=== PATIENT | female | born 1960 | race Caucasian/White ===

== ENCOUNTER 2016-12-20 06:24 | Observation (INO) | payer BC ==
--- NOTE | 2016-12-20 06:33 | ED ---
General Adult HPI - General Stated complaint: chest pains Time Seen by Provider: 12/20/16 06:29 Source: RN notes reviewed, old records reviewed - History of Present Illness Initial comments: This is a 56-year-old female the ER for evaluation chest pain. Patient states she has anterior chest pain radiating up to her throat. Patient has no history of high blood pressure positive history of high cholesterol no diabetes nonsmoker patient's dad did have a heart attack at a young age, patient states she had cardiac testing about 5 years ago which was normal at the time. She states she woke for this pain awoke her this morning she felt like she was bloated like she had to burp and the symptoms were under her chest which they still are now. No shortness of breath. No cough congestion fevers or chills history as of recent. Patient states she did try to walk walk around and get rid of the symptoms but she was unable to. Patient still feeling same pain at this time no episodes of diaphoresis and currently no shortness of breath - Related Data Home Medications Medication Instructions Recorded Confirmed Aspirin 81 mg PO HS 03/27/15 12/20/16 Atorvastatin Calcium [Lipitor] 10 mg PO HS 03/27/15 12/20/16 Multivitamin/Iron/Folic Acid 1 tab PO DAILY 03/27/15 12/20/16 [Centrum Complete Multivit Tab] Aspirin 325 mg PO ONCE 12/20/16 12/20/16 Cetirizine HCl [Zyrtec] 10 mg PO HS 12/20/16 12/20/16 L.acidoph,Paracasei, B.lactis 1 cap PO DAILY 12/20/16 12/20/16 [Probiotic] Magnesium Oxide [Mag-Ox] 400 mg PO DAILY 12/20/16 12/20/16 Ubidecarenone [Co Q-10] 200 mg PO DAILY 12/20/16 12/20/16 Allergies Allergy/AdvReac Type Severity Reaction Status Date / Time levofloxacin [From Levaquin] Allergy Swelling Verified 12/20/16 08:06 Sulfa (Sulfonamide Allergy Rash/Hives Verified 12/20/16 08:06 Antibiotics) Review of Systems ROS Statement: Those systems with pertinent positive or pertinent negative responses have been documented in the HPI. ROS Other: All systems not noted in ROS Statement are negative. Past Medical History Past Medical History: Hyperlipidemia Additional Past Medical History / Comment(s): sinus problems,. C-diff x2 with hospitalization due to antibiotics History of Any Multi-Drug Resistant Organisms: C-DIFF Date of last positivie culture/infection: 2007 MDRO Source:: stool Past Surgical History: Adenoidectomy, Bladder Surgery, Hysterectomy, Tonsillectomy Additional Past Surgical History / Comment(s): cyst removed behind lt ear, 2 breast biopsy rt- benign. colonoscopy Past Anesthesia/Blood Transfusion Reactions: Postoperative Nausea & Vomiting ( PONV) Past Psychological History: No Psychological Hx Reported Smoking Status: Never smoker Past Alcohol Use History: Rare Past Drug Use History: None Reported - Past Family History Mother Family Medical History: No Reported History Father Family Medical History: Myocardial Infarction ([place]), Osteoarthritis (OA) Additional Family Medical History / Comment(s): AT 63 Sister(s) Family Medical History: Asthma, Diabetes Mellitus, Hyperlipidemia, Hypertension , Osteoarthritis (OA), Rheumatoid Arthritis (RA) General Exam General appearance: alert, in no apparent distress Head exam: Present: atraumatic, normocephalic, normal inspection Eye exam: Present: normal appearance, PERRL, EOMI. Absent: scleral icterus, conjunctival injection, periorbital swelling ENT exam: Present: normal exam, mucous membranes moist Neck exam: Present: normal inspection. Absent: tenderness, meningismus, lymphadenopathy Respiratory exam: Present: normal lung sounds bilaterally. Absent: respiratory distress, wheezes, rales, rhonchi, stridor Cardiovascular Exam: Present: regular rate, normal rhythm, normal heart sounds. Absent: systolic murmur, diastolic murmur, rubs, gallop, clicks GI/Abdominal exam: Present: soft, normal bowel sounds. Absent: distended, tenderness, guarding, rebound, rigid Extremities exam: Present: normal inspection, full ROM, normal capillary refill. Absent: tenderness, pedal edema, joint swelling, calf tenderness Back exam: Present: normal inspection Neurological exam: Present: alert, oriented X3, CN II-XII intact Psychiatric exam: Present: normal affect, normal mood Skin exam: Present: warm, dry, intact, normal color. Absent: rash Course Vital Signs 12/20/16 12/20/16 12/20/16 06:28 07:00 08:12 Temperature 97.0 F L 98.4 F Pulse Rate 70 65 69 Respiratory 16 18 18 Rate Blood Pressure 148/88 134/79 122/71 O2 Sat by Pulse 99 98 99 Oximetry EKG Findings - EKG Comments: EKG Findings:: EKG shows normal sinus rhythm rate of 60, AL 152, QRS 86, QTC 431 Medical Decision Making - Medical Decision Making 56-year-old year fevers or chest pain. Patient will be admitted for chest pain observation, cardiac evaluation, serial troponins and car and telemetry. - Lab Data Result diagrams: 12/20/16 06:33 12/20/16 06:33 Lab Results 12/20/16 12/20/16 12/20/16 Range/Units 06:33 06:33 06:33 WBC 7.7 (3.8-10.6) k/uL RBC 4.61 (3.80-5.40) m/uL Hgb 14.2 (11.4-16.0) gm/dL Hct 43.8 (34.0-46.0) % MCV 94.9 (80.0-100.0) fL MCH 30.8 (25.0-35.0) pg MCHC 32.5 (31.0-37.0) g/dL RDW 13.6 (11.5-15.5) % Plt Count 261 (150-450) k/uL Neutrophils % 62 % Lymphocytes % 29 % Monocytes % 5 % Eosinophils % 2 % Basophils % 1 % Neutrophils # 4.7 (1.3-7.7) k/uL Lymphocytes # 2.2 (1.0-4.8) k/uL Monocytes # 0.4 (0-1.0) k/uL Eosinophils # 0.1 (0-0.7) k/uL Basophils # 0.1 (0-0.2) k/uL PT (9.0-12.0) sec INR (<1.2) APTT (22.0-30.0) sec D-Dimer (<0.60) mg/L FEU Sodium 138 (137-145) mmol/L Potassium 4.6 (3.5-5.1) mmol/L Chloride 102 (98-107) mmol/L Carbon Dioxide 26 (22-30) mmol/L Anion Gap 10 mmol/L BUN 10 (7-17) mg/dL Creatinine 0.80 (0.52-1.04) mg/dL Est GFR (MDRD) Af Amer >60 (>60 ml/min/1.73 sqM) Est GFR (MDRD) Non-Af >60 (>60 ml/min/1.73 sqM) Glucose 97 (74-99) mg/dL Calcium 10.2 (8.4-10.2) mg/dL Magnesium 1.9 (1.6-2.3) mg/dL Total Bilirubin 0.7 (0.2-1.3) mg/dL AST 82 H (14-36) U/L ALT 69 H (9-52) U/L Alkaline Phosphatase 83 (38-126) U/L Total Creatine Kinase 216 H (30-135) U/L CK-MB (CK-2) 3.4 H* (0.0-2.4) ng/mL CK-MB (CK-2) Rel Index 1.6 Troponin I <0.012 (0.000-0.034) ng/mL Total Protein 7.7 (6.3-8.2) g/dL Albumin 4.7 (3.5-5.0) g/dL Lipase 136 (23-300) U/L 12/20/16 Range/Units 06:33 WBC (3.8-10.6) k/uL RBC (3.80-5.40) m/uL Hgb (11.4-16.0) gm/dL Hct (34.0-46.0) % MCV (80.0-100.0) fL MCH (25.0-35.0) pg MCHC (31.0-37.0) g/dL RDW (11.5-15.5) % Plt Count (150-450) k/uL Neutrophils % % Lymphocytes % % Monocytes % % Eosinophils % % Basophils % % Neutrophils # (1.3-7.7) k/uL Lymphocytes # (1.0-4.8) k/uL Monocytes # (0-1.0) k/uL Eosinophils # (0-0.7) k/uL Basophils # (0-0.2) k/uL PT 10.7 (9.0-12.0) sec INR 1.1 (<1.2) APTT 26.0 (22.0-30.0) sec D-Dimer 0.31 (<0.60) mg/L FEU Sodium (137-145) mmol/L Potassium (3.5-5.1) mmol/L Chloride (98-107) mmol/L Carbon Dioxide (22-30) mmol/L Anion Gap mmol/L BUN (7-17) mg/dL Creatinine (0.52-1.04) mg/dL Est GFR (MDRD) Af Amer (>60 ml/min/1.73 sqM) Est GFR (MDRD) Non-Af (>60 ml/min/1.73 sqM) Glucose (74-99) mg/dL Calcium (8.4-10.2) mg/dL Magnesium (1.6-2.3) mg/dL Total Bilirubin (0.2-1.3) mg/dL AST (14-36) U/L ALT (9-52) U/L Alkaline Phosphatase (38-126) U/L Total Creatine Kinase (30-135) U/L CK-MB (CK-2) (0.0-2.4) ng/mL CK-MB (CK-2) Rel Index Troponin I (0.000-0.034) ng/mL Total Protein (6.3-8.2) g/dL Albumin (3.5-5.0) g/dL Lipase (23-300) U/L - Radiology Data Radiology results: report reviewed (Chest x-ray is negative for acute disease), image reviewed Critical Care Time Critical Care Time: Yes Critical Care Time: 31 Disposition Clinical Impression: Chest pain Disposition: ADMITTED IP TO THIS [facility] Condition: Undetermined
[2016-12-20 06:51] LABS: Basophils # (A) 0.1 k/uL (0-0.2); Basophils % (A) 1 %; CH 32.1; Eosinophils # (A) 0.1 k/uL (0-0.7); Eosinophils % (A) 2 %; HCT 43.8 % (34.0-46.0); HGB 14.2 gm/dL (11.4-16.0); Luc # (Auto) 0.09; Luc % (Auto) 1; Lymphocytes # (A) 2.2 k/uL (1.0-4.8); Lymphocytes % (A) 29 %; MCH 30.8 pg (25.0-35.0); MCHC 32.5 g/dL (31.0-37.0); MCV 94.9 fL (80.0-100.0); Mean Platelet Volume 8.1; Monocytes # (A) 0.4 k/uL (0-1.0); Monocytes % (A) 5 %; Neutrophils # (A) 4.7 k/uL (1.3-7.7); Neutrophils % (A) 62 %; RBC 4.61 m/uL (3.80-5.40); RDW 13.6 % (11.5-15.5); WBC 7.7 k/uL (3.8-10.6); WBC (Perox) 7.62
[2016-12-20 07:02] VITALS: RESP 18
[2016-12-20 07:03] LABS: ALT 69 U/L (9-52); AST 82 U/L (14-36); Alkaline Phosphatase 83 U/L (38-126); Anion Gap 10 mmol/L; Blood Urea Nitrogen 10 mg/dL (7-17); Calcium 10.2 mg/dL (8.4-10.2); Carbon Dioxide 26 mmol/L (22-30); Chloride 102 mmol/L (98-107); Glucose 97 mg/dL (74-99); Magnesium 1.9 mg/dL (1.6-2.3); Non-African American GFR(MDRD) >60 (>60 ml/min/1.73 sqM); Potassium 4.6 mmol/L (3.5-5.1); Sodium 138 mmol/L (137-145); Total Bilirubin 0.7 mg/dL (0.2-1.3); Total Protein 7.7 g/dL (6.3-8.2)
[2016-12-20 07:11] LABS: Creatine Kinase 216 U/L (30-135)
[2016-12-20 07:15] LABS: INR 1.1 (<1.2); Prothrombin Time 10.7 sec (9.0-12.0)
--- NOTE | 2016-12-20 07:23 | XR ---
EXAM: XR Chest, 2 Views. CLINICAL HISTORY: Reason: Chest Pain TECHNIQUE: Frontal and lateral views of the chest. COMPARISON: No relevant prior studies available. FINDINGS: Lungs: Unremarkable. No consolidation. Pleural spaces: Unremarkable. No pneumothorax. Heart: Unremarkable. No cardiomegaly. Mediastinum: Unremarkable. Bones: Unremarkable. No acute fracture. IMPRESSION: Normal chest.
[2016-12-20 07:24] LABS: Troponin I <0.012 ng/mL (0.000-0.034)
[2016-12-20 07:34] LABS: Creatine Kinase MB 3.4 ng/mL (0.0-2.4)
[2016-12-20] MEDS ORDERED: HEPARIN SODIUM,PORCINE 5,000 UNIT/ML 1 ML VIAL IV ONE (07:42)
[2016-12-20] MEDS ORDERED: ASPIRIN 81 MG PO STA (07:42)
[2016-12-20] MEDS ORDERED: MORPHINE SULFATE 2 MG/ML SYRINGE IV PRN (07:42)
[2016-12-20] MEDS ORDERED: NITROGLYCERIN SL TABS 0.4 MG TAB SUBLINGUAL PRN (07:42)
[2016-12-20] MEDS ORDERED: HEPARIN SODIUM,PORCINE 5,000 UNIT/ML 1 ML VIAL IV PRN (07:42)
[2016-12-20] MEDS ORDERED: HEPARIN SODIUM,PORCINE/D5W PMX 25,000 UNIT in DEXTROSE/WATER 1 500ML.BAG IV SCH (07:45)
[2016-12-20 08:38] VITALS: BP 117/66; PULSE 61; TEMP 97.8
[2016-12-20 08:46] VITALS: BMI 22.6
[2016-12-20] MEDS ORDERED: ATORVASTATIN 80 MG TAB PO SCH (09:00)
--- NOTE | 2016-12-20 13:07 | P.CRDCN ---
History of Present Illness Consult date: 12/20/16 History of present illness: This is a 56-year-old female with past medical history significant for hyperlipidemia. She presents to the hospital with complaints of midsternal chest pressure that she describes as a feeling of a bubble that she needs to belch. But she is unable to make the bubble go away. She feels this pressure in her throat as well. She denies shortness of breath, dizziness, palpitations or nausea associated with this pain. She also denies orthopnea or PND. She had a stress test done approximately 5 years ago which she states was normal. She denies any history of prior NE or CAD. She is a nonsmoker and has a family history. EKG reveals sinus mechanism with no acute ST or T-wave abnormalities. Cardiac enzymes are negative x1. D-dimer negative. Potassium 4.6, magnesium 1.9 , BUN 10, Cr 0.8. Blood pressure 117/66 with heart rate of 61. Review of Systems CONSTITUTIONAL: Denies fever. Denies chills. EYES: Denies blurred vision. Denies vision changes. Denies eye pain. EARS, NOSE, MOUTH & THROAT: Denies headache. Denies sore throat. Denies ear pain. CARDIOVASCULAR: Complains of chest pain. Denies shortness of breath. Denies orthopnea. Denies PND. Denies palpitations. RESPIRATORY: Denies cough. GASTROINTESTINAL: Denies abdominal pain. Denies diarrhea. Denies constipation. Denies nausea. Denies vomitng. MUSCULOSKELETAL: Denies myalgias. INTEGUMENTARY: Denies pruitis. Denies rash. NEUROLOGIC: Denies numbness. Denies tingling. Denies weakness. PSYCHIATRIC: Denies anxiety. Denies depression. ENDOCRINE: Denies fatigue. Denies weight change. Denies polydipsia. Denies polyurina. GENITOURINARY: Denies burning, hematuria or urgency with micturation. HEMATOLOGIC: Denies history of anemia. Denies bleeding. Past Medical History Past Medical History: Hyperlipidemia Additional Past Medical History / Comment(s): sinus problems,. C-diff x2 with hospitalization due to antibiotics 2007 History of Any Multi-Drug Resistant Organisms: C-DIFF Date of last positivie culture/infection: 2007 MDRO Source:: stool Past Surgical History: Adenoidectomy, Bladder Surgery, Hernia Repair, Hysterectomy, Tonsillectomy Additional Past Surgical History / Comment(s): cyst removed behind lt ear, 2 breast biopsy rt- benign. colonoscopy Past Anesthesia/Blood Transfusion Reactions: Postoperative Nausea & Vomiting ( PONV) Past Psychological History: No Psychological Hx Reported Smoking Status: Never smoker Past Alcohol Use History: Rare Past Drug Use History: None Reported - Past Family History Mother Family Medical History: Hyperlipidemia, Hypertension Additional Family Medical History / Comment(s): SMOKER Father Family Medical History: Myocardial Infarction ([place]), Osteoarthritis (OA) Additional Family Medical History / Comment(s): AT 63 Sister(s) Family Medical History: Asthma, Diabetes Mellitus, Hyperlipidemia, Hypertension , Osteoarthritis (OA), Rheumatoid Arthritis (RA) Medications and Allergies Home Medications Medication Instructions Recorded Confirmed Type Aspirin 81 mg PO HS 03/27/15 12/20/16 History Atorvastatin Calcium [Lipitor] 10 mg PO HS 03/27/15 12/20/16 History Multivitamin/Iron/Folic Acid 1 tab PO DAILY 03/27/15 12/20/16 History [Centrum Complete Multivit Tab] Aspirin 325 mg PO ONCE 12/20/16 12/20/16 History Cetirizine HCl [Zyrtec] 10 mg PO HS 12/20/16 12/20/16 History L.acidoph,Paracasei, B.lactis 1 cap PO DAILY 12/20/16 12/20/16 History [Probiotic] Magnesium Oxide [Mag-Ox] 400 mg PO DAILY 12/20/16 12/20/16 History Ubidecarenone [Co Q-10] 200 mg PO DAILY 12/20/16 12/20/16 History Allergies Allergy/AdvReac Type Severity Reaction Status Date / Time levofloxacin [From Levaquin] Allergy Swelling Verified 12/20/16 08:06 Sulfa (Sulfonamide Allergy Rash/Hives Verified 12/20/16 08:06 Antibiotics) Physical Exam Vitals: Vital Signs Temp Pulse Pulse Resp BP BP Pulse Ox 12/20/16 08:36 97.8 F 61 18 117/66 98 12/20/16 08:12 98.4 F 69 18 122/71 99 12/20/16 07:00 65 18 134/79 98 12/20/16 06:28 97.0 F L 70 16 148/88 99 Intake and Output 12/19/16 12/20/16 12/20/16 22:59 06:59 14:59 Other: Weight 63.503 kg 63.8 kg Patient Weight 12/21/16 06:59 Weight 63.8 kg GENERAL: This is a 56-year-old female in no apparent distress at the time of my examination. HEENT: Head is atraumatic, normocephalic. Pupils are equal, round. Sclerae anicteric. Conjunctivae are clear. Mucous membranes of the mouth are moist. Neck is supple. There is no jugular venous distention. No carotid bruit is heard. LUNGS: Clear to auscultation no wheezes, rales or rhonchi. No chest wall tenderness is noted on palpation or with deep breathing. HEART: Regular rate and rhythm without murmurs, rubs or gallops. S1 and S2 heard. ABDOMEN: Soft, nontender. Bowel sounds are heard. No organomegaly noted. EXTREMITIES: 2+ peripheral pulses with no evidence of peripheral edema and no calf tenderness noted. NEUROLOGIC: Patient is awake, alert and oriented x3. Results 12/20/16 06:33 12/20/16 06:33 Cardiac Enzymes 12/20/16 12/20/16 Range/Units 06:33 06:33 AST 82 H (14-36) U/L CK-MB (CK-2) 3.4 H* (0.0-2.4) ng/mL Troponin I <0.012 (0.000-0.034) ng/mL Coagulation 12/20/16 Range/Units 06:33 PT 10.7 (9.0-12.0) sec APTT 26.0 (22.0-30.0) sec CBC 12/20/16 Range/Units 06:33 WBC 7.7 (3.8-10.6) k/uL RBC 4.61 (3.80-5.40) m/uL Hgb 14.2 (11.4-16.0) gm/dL Hct 43.8 (34.0-46.0) % Plt Count 261 (150-450) k/uL Comprehensive Metabolic Panel 12/20/16 Range/Units 06:33 Sodium 138 (137-145) mmol/L Potassium 4.6 (3.5-5.1) mmol/L Chloride 102 (98-107) mmol/L Carbon Dioxide 26 (22-30) mmol/L BUN 10 (7-17) mg/dL Creatinine 0.80 (0.52-1.04) mg/dL Glucose 97 (74-99) mg/dL Calcium 10.2 (8.4-10.2) mg/dL AST 82 H (14-36) U/L ALT 69 H (9-52) U/L Alkaline Phosphatase 83 (38-126) U/L Total Protein 7.7 (6.3-8.2) g/dL Albumin 4.7 (3.5-5.0) g/dL Current Medications Generic Name Dose Route Start Last Admin Trade Name Freq PRN Reason Stop Dose Admin Aspirin 325 mg 12/21/16 09:00 Aspirin PO DAILY [facility] Atorvastatin Calcium 80 mg 12/20/16 09:00 Lipitor PO DAILY [facility] Heparin Sodium (Porcine) 0 unit 12/20/16 07:42 Heparin IV Q6HR PRN Low PTT Protocol Heparin Sodium/Dextrose 25,000 500 mls @ 15.24 mls/hr 12/20/16 07:45 08:10 unit/ IV Solution IV 12 units/kg/hr .Q24H CARLY 15.24 mls/hr Protocol Administration 12 UNITS/KG/HR Morphine Sulfate 4 mg 12/20/16 07:42 Morphine Sulfate (Inj) IV Q5M PRN Chest Pain Nitroglycerin 0.4 mg 12/20/16 07:42 Nitrostat SUBLINGUAL Q5M PRN Chest Pain Intake and Output 12/19/16 12/20/16 12/20/16 22:59 06:59 14:59 Other: Weight 63.503 kg 63.8 kg Patient Weight 12/21/16 06:59 Weight 63.8 kg 12/20/16 06:33 12/20/16 06:33 Assessment and Plan Plan: ASSESSMENT 1. Chest pain, atypical 2. Hyperlipidemia PLAN Continue with serial troponin and EKG to rule out acute coronary event. If the second troponin is negative heparin can be discontinued and the patient can be discharged home. We recommend the patient follow-up as an outpatient for stress testing. This has been discussed with the patient and she is agreeable. An appointment has been made for Friday for the stress test in a follow-up visit with Dr. Wheeler. The above impression and plan of care have been discussed and directed by the signing physician. Halle Laurel, nurse practitioner, acting as scribe for signing physician.
--- NOTE | 2016-12-20 14:44 | P.HPIM ---
History of Present Illness H&P Date: 12/20/16 Chief Complaint: Chest pain Patient is a 56-year-old male with known history of hyperlipidemia and family history of coronary disease presented to hospital with complaints of chest discomfort mainly in the anterior lower sternal area and epigastric area. Patient felt like big bubble in the epigastric region. [place] like belching not coming out And which woke up from sleep patient went for an hour and came to the hospital since is not resolving. Patient denied any radiation of the pain. No associated short of breath dizziness palpitations or lightheadedness. Denied any orthopnea or PND. Patient never had any history of coronary artery disease patient does have hyperlipidemia. No recent illnesses. No recent travel. Patient works as a nurse at [employer]. Patient says that she had right hernia repair about 2 months back and since then patient has been taking Motrin on a daily basis once a day. Denied a history of gastric ulcer in the past. Patient denied any nausea or abdominal pain with food. Denied any recent unusual food intake. Pain resolved spontaneously by the time she arrived to the ER EKG showed normal sinus rhythm with no ST-T wave changes Initial troponin is negative. D-dimer is negative. Blood pressure is not elevated. Patient was seen by cardiology and 2-D echo but exam was ordered. Review of Systems Constitutional: Patient denies any fever or chills . No generalized weakness or weight loss. Abdomen: Patient denied nausea vomiting and diarrhea and abdominal pain. Cardiovascular: Chest pain . No short of breath no palpitations. Respiratory: patient denied any cough is from production. No shortness of breath Neurologic: Patient denied any numbness or tingling headache. Musculoskeletal: Patient denies any complaints of joint swelling or deformity. Skin: Negative Psychiatric: Negative Endocrine: No heat or cold intolerance. No recent weight gain. Genitourinary: No dysuria or hematuria. All other 14 point ROS negative except the above Past Medical History Past Medical History: Hyperlipidemia Additional Past Medical History / Comment(s): sinus problems,. C-diff x2 with hospitalization due to antibiotics 2007 History of Any Multi-Drug Resistant Organisms: C-DIFF Date of last positivie culture/infection: 2007 MDRO Source:: stool Past Surgical History: Adenoidectomy, Bladder Surgery, Hernia Repair, Hysterectomy, Tonsillectomy Additional Past Surgical History / Comment(s): cyst removed behind lt ear, 2 breast biopsy rt- benign. colonoscopy Past Anesthesia/Blood Transfusion Reactions: Postoperative Nausea & Vomiting ( PONV) Past Psychological History: No Psychological Hx Reported Smoking Status: Never smoker Past Alcohol Use History: Rare Past Drug Use History: None Reported - Past Family History Mother Family Medical History: Hyperlipidemia, Hypertension Additional Family Medical History / Comment(s): SMOKER Father Family Medical History: Myocardial Infarction ([place]), Osteoarthritis (OA) Additional Family Medical History / Comment(s): AT 63 Sister(s) Family Medical History: Asthma, Diabetes Mellitus, Hyperlipidemia, Hypertension , Osteoarthritis (OA), Rheumatoid Arthritis (RA) Medications and Allergies Home Medications and Allergies Comment(s): PHYSICAL EXAMINATION: Patient is lying in the bed comfortably, no acute distress, awake alert and oriented.. HEENT: Normocephalic. Neck is supple. Pupils reactive. Nostrils clear. Oral cavity is moist. Ears reveal no drainage. Neck reveals no JVD, carotid bruits, or thyromegaly. CHEST EXAMINATION: Trachea is central. Symmetrical expansion. Lung mccarty clear to auscultation and percussion. CARDIAC: Normal S1, S2 with no gallops. No murmurs ABDOMEN: Soft. Bowel sounds normal. No organomegaly. No abdominal bruits. Extremities: reveal no edema. No clubbing or cyanosis Neurologically awake, alert, oriented x3 with well-coordinated movements. No focal deficits noted Skin: No rash or skin lesions. Psychiatric: Operative. Nonsuicidal Musculoskeletal: No joint swelling or deformity. Normal range of motion. Home Medications Medication Instructions Recorded Confirmed Type Aspirin 81 mg PO HS 03/27/15 12/20/16 History Atorvastatin Calcium [Lipitor] 10 mg PO HS 03/27/15 12/20/16 History Multivitamin/Iron/Folic Acid 1 tab PO DAILY 03/27/15 12/20/16 History [Centrum Complete Multivit Tab] Aspirin 325 mg PO ONCE 12/20/16 12/20/16 History Cetirizine HCl [Zyrtec] 10 mg PO HS 12/20/16 12/20/16 History L.acidoph,Paracasei, B.lactis 1 cap PO DAILY 12/20/16 12/20/16 History [Probiotic] Magnesium Oxide [Mag-Ox] 400 mg PO DAILY 12/20/16 12/20/16 History Ubidecarenone [Co Q-10] 200 mg PO DAILY 12/20/16 12/20/16 History Allergies Allergy/AdvReac Type Severity Reaction Status Date / Time levofloxacin [From Levaquin] Allergy Swelling Verified 12/20/16 08:06 Sulfa (Sulfonamide Allergy Rash/Hives Verified 12/20/16 08:06 Antibiotics) Physical Exam Vitals: Vital Signs Temp Pulse Pulse Resp BP BP Pulse Ox 12/20/16 08:36 97.8 F 61 18 117/66 98 12/20/16 08:12 98.4 F 69 18 122/71 99 12/20/16 07:00 65 18 134/79 98 12/20/16 06:28 97.0 F L 70 16 148/88 99 Intake and Output 12/19/16 12/20/16 12/20/16 22:59 06:59 14:59 Intake Total 200 Balance 200 Intake: Oral 200 Other: Weight 63.503 kg 63.8 kg Patient Weight 12/21/16 06:59 Weight 63.8 kg Results CBC & Chem 7: 12/20/16 06:33 12/20/16 06:33 Labs: Abnormal Lab Results - Last 24 Hours (Table) 12/20/16 12/20/16 12/20/16 Range/Units 06:33 06:33 13:29 APTT 75.2 H (22.0-30.0) sec AST 82 H (14-36) U/L ALT 69 H (9-52) U/L Total Creatine Kinase 216 H (30-135) U/L CK-MB (CK-2) 3.4 H* (0.0-2.4) ng/mL Thrombosis Risk Factor Assmnt - DVT/VTE Prophylaxis DVT/VTE Prophylaxis: Pharmacologic Prophylaxis ordered - Choose All That Apply Any of the Below Risk Factors Present?: Yes Each Factor Represents 1 point: Age 41-60 years Other Risk Factors: No Thrombosis Risk Factor Assessment Total Risk Factor Score: 1 Thrombosis Risk Factor Assessment Level: Low Risk Assessment and Plan Plan: #1 atypical chest pain rule out acute coronary syndrome. #2 possible gastritis with recent NSAID use #3 recent hernia repair about 2 months back #4History of C. diff infection off antibiotic use previously #5 Hyperlipidemia #6 family history of coronary artery disease Plan: Patient will be continued on telemetry monitoring. Was started on heparin while in the ER. Will follow serial troponins 3. Audiology recommended 2-D echo cardiac rhythm and stress test as outpatient. Patient currently chest free. Further recommendations based on the clinical course.
--- NOTE | 2016-12-20 19:33 | ECHOF ---
Referral Reason:chest pain MEASUREMENTS -------- HEIGHT: 167.6 cm WEIGHT: 63.5 kg BP: 117/66 RVIDd: 2.6 cm (< 3.3) IVSd: 1.0 cm (0.6 - 1.1) LVIDd: 3.8 cm (3.9 - 5.3) LVPWd: 1.2 cm (0.6 - 1.1) IVSs: 1.5 cm LVIDs: 2.6 cm LVPWs: 1.6 cm LA Diam: 2.9 cm (2.7 - 3.8) LAESV Index (A-L): 15.33 ml/m Ao Diam: 2.9 cm (2.0 - 3.7) AV Cusp: 2.1 cm (1.5 - 2.6) MV EXCURSION: 18.330 mm (> 18.000) MV EF SLOPE: 107 mm/s (70 - 150) EPSS: 0.1 cm MV E Garth: 1.04 m/s MV DecT: 225 ms MV A Garth: 0.79 m/s MV E/A Ratio: 1.31 FINDINGS -------- Sinus rhythm. This was a technically good study. The left ventricular size is normal. Left ventricular wall thickness is normal. Overall left ventricular systolic function is normal with, an EF between 60 - 65 %. The right ventricle is normal in size. Normal LA size by volume 22+/-6 ml/m2. The right atrium is normal in size. The aortic valve is trileaflet and appears structurally normal. There is trace mitral regurgitation. The tricuspid valve appears structurally normal. Trace/mild (physiologic) pulmonic regurgitation. The aortic root size is normal. Normal inferior vena cava with normal inspiratory collapse consistent with estimated right atrial pressure of 5 mmHg. There is no pericardial effusion. CONCLUSIONS -------- 1. Sinus rhythm. 2. There is trace mitral regurgitation. 3. The tricuspid valve appears structurally normal. 4. Trace/mild (physiologic) pulmonic regurgitation. 5. The aortic root size is normal. 6. Normal inferior vena cava with normal inspiratory collapse consistent with estimated right atrial pressure of 5 mmHg. 7. There is no pericardial effusion. 8. This was a technically good study. 9. The left ventricular size is normal. 10. Left ventricular wall thickness is normal. 11. Overall left ventricular systolic function is normal with, an EF between 60 - 65 %. 12. The right ventricle is normal in size. 13. Normal LA size by volume 22+/-6 ml/m2. 14. The right atrium is normal in size. 15. The aortic valve is trileaflet and appears structurally normal. MANAGER [employer]USTRI[employer]: Sherry Salgado RDCS
--- NOTE | 2016-12-21 01:12 | P.DS ---
Providers Date of admission: 12/20/16 07:42 Expected date of discharge: 12/20/16 Attending physician: Chepe Gupta Consults: 12/20/16 07:42 Consult Physician Urgent Consulting Provider: Fei Cantrell Consult Reason/Comments: cp Do you want consulting provider notified?: Yes Primary care physician: [facility] Course: Discharge diagnosis #1 atypical chest pain ruled out acute coronary syndrome. #2 possible gastritis with recent NSAID use #3 recent hernia repair about 2 months back #4History of C. diff infection off antibiotic use previously #5 Hyperlipidemia #6 family history of coronary artery disease Hospital course Patient is a 56-year-old male with known history of hyperlipidemia and family history of coronary disease presented to hospital with complaints of chest discomfort mainly in the anterior lower sternal area and epigastric area. Patient felt like big bubble in the epigastric region. [place] like belching not coming out And which woke up from sleep patient went for an hour and came to the hospital since is not resolving. Patient denied any radiation of the pain. No associated short of breath dizziness palpitations or lightheadedness. Denied any orthopnea or PND. Patient never had any history of coronary artery disease patient does have hyperlipidemia. No recent illnesses. No recent travel. Patient works as a nurse at [employer]. Patient says that she had right hernia repair about 2 months back and since then patient has been taking Motrin on a daily basis once a day. Denied a history of gastric ulcer in the past. Patient denied any nausea or abdominal pain with food. Denied any recent unusual food intake. Pain resolved spontaneously by the time she arrived to the ER EKG showed normal sinus rhythm with no ST-T wave changes Initial troponin is negative. D-dimer is negative. Blood pressure is not elevated. Patient was seen by cardiology and 2-D echo but exam was ordered. Showed normal ejection fraction. No wall valvular abnormality Plan: Patient was continued on telemetry monitoring. Was started on heparin while in the ER. Serial troponin negative. Cardiology recommended 2-D echo cardiac rhythm and stress test as outpatient. Patient currently chest free. Patient is stable to be discharged home. Patient Condition at Discharge: Undetermined Plan - Discharge Summary New Discharge Prescriptions: Continue Aspirin 81 mg PO HS Multivitamin/Iron/Folic Acid [Centrum Complete Multivit Tab] 1 tab PO DAILY Atorvastatin Calcium [Lipitor] 10 mg PO HS Ubidecarenone [Co Q-10] 200 mg PO DAILY Magnesium Oxide [Mag-Ox] 400 mg PO DAILY Cetirizine HCl [Zyrtec] 10 mg PO HS L.acidoph,Paracasei, B.lactis [Probiotic] 1 cap PO DAILY Aspirin 325 mg PO ONCE Discharge Medication List Aspirin 81 mg PO HS 03/27/15 [History] Atorvastatin Calcium [Lipitor] 10 mg PO HS 03/27/15 [History] Multivitamin/Iron/Folic Acid [Centrum Complete Multivit Tab] 1 tab PO DAILY [History] Aspirin 325 mg PO ONCE 12/20/16 [History] Cetirizine HCl [Zyrtec] 10 mg PO HS 12/20/16 [History] L.acidoph,Paracasei, B.lactis [Probiotic] 1 cap PO DAILY 12/20/16 [History] Magnesium Oxide [Mag-Ox] 400 mg PO DAILY 12/20/16 [History] Ubidecarenone [Co Q-10] 200 mg PO DAILY 12/20/16 [History] Follow up Appointment(s)/Referral(s): Hima Rojo DO [Primary Care Provider] - 1-2 days Donn Wheeler MD [STAFF PHYSICIAN] - 12/23/16 11:00 am (Exercise stress test) Patient Instructions/Handouts: Chest Pain (ED) Discharge Disposition: HOME SELF-CARE
[2016-12-21] MEDS ORDERED: ASPIRIN 325 MG TAB PO SCH (09:00)
== END 2016-12-20 16:13 | disposition home or self-care (01) ==
LOC: EC 06:24 → 3OBS 07:42
PROVIDERS: ADMIT Hospitalist; ATTEND Hospitalist
DX: R07.89 Other chest pain (principal); E78.00 Pure hypercholesterolemia, unspecified; R10.13 Epigastric pain; Z82.49 Family history of ischemic heart disease and other diseases of the circulatory system; Z79.82 Long term (current) use of aspirin; Z79.899 Other long term (current) drug therapy; Z88.2 Allergy status to sulfonamides; Z88.1 Allergy status to other antibiotic agents; Z16.24 Resistance to multiple antibiotics; Z83.3 Family history of diabetes mellitus; Z82.5 Family history of asthma and other chronic lower respiratory diseases
CPT/HCPCS: 99291; 96374; 36415; 93005; 93306; 85379; 80053; 82550; 82553; 83690; 83735; 84484; 85025; 85610; 85730; 71020; G0378; J1644 ×2

== ENCOUNTER → 2019-05-19 | Outpatient (CLI) | payer BC ==
--- NOTE | 2019-05-19 11:57 | FL ---
COMPARISON: NONE DATE OF EXAM: 05/19/2019 HISTORY: Dysphasia A number of thin and thick substances were ingested under the care of the department of speech pathol ogy. There is no evidence of aspiration or penetration. There is no evidence of obstruction. There may be some residual within the esophagus which could be evaluate for possible dysmotility. 44 second s of fluoroscopy submitted and no images provided. IMPRESSION: 1. No evidence of aspiration or penetration. See above.
== END | disposition home or self-care (01) ==
LOC: RADFLMAIN 10:55
PROVIDERS: ATTEND Family Medicine
DX: K21.0 Gastro-esophageal reflux disease with esophagitis (principal)
CPT/HCPCS: 74230

== ENCOUNTER → 2023-03-05 | Outpatient (CLI) | payer BC ==
--- NOTE | 2023-03-06 14:15 | BD ---
EXAMINATION TYPE: Axial Bone Density DATE OF EXAM: 03/05/2023 CLINICAL HISTORY: 63 years old Female. ICD-10 CODE: Z78.0 ASYMPTOMATIC MENOPAUSAL STATE Height: Weight: FRAX RISK QUESTIONS: Family History (Parent hip fracture): no History of Fracture in Adulthood: no Secondary Osteoporosis: no RISK FACTORS HISTORY OF: Family History of Osteoporosis: yes ,sister Active: yes Diet low in dairy products/other sources of calcium: no Postmenopausal woman: yes Lost more than 2 inches in height since high school: no MEDICATIONS: Additional Medications: no EXAM MEASUREMENTS: Bone mineral densitometry was performed using the [employer] System. Bone mineral density as measured about the Lumbar spine is: ----- L1-L4(G/cm2): 0.979 T Score Values are as follows: ----- L1: -2.6 ----- L2: -1.9 ----- L3: -1.1 ----- L4: -1.4 ----- L1-L4: -1.7 Z Score Values are as follows: ----- L1: -1.3 ----- L2: -0.6 ----- L3: 0.2 ----- L4: -0.1 ----- L1-L4: -0.4 Bone mineral density baseline Bone mineral density about the R hip (g/cm2): 0.822 Bone mineral density about the L hip (g/cm2): 0.848 T Score values are as follows: -----R Neck: -2.3 -----L Neck: -2.0 -----R Total: -1.5 -----L Total: -1.3 Z Score values are as follows: -----R Neck: -1.0 -----L Neck: -0.7 -----R Total: -0.5 -----L Total: -0.3 Bone mineral density baseline FRAX%s: The graph provided illustrates a 11.7% chance for a major osteoporotic fx and a 2.0% chance f or the hips probability for fx in 10 years time. IMPRESSION: Osteopenia (T Score between -2.5 and -1). There is slightly increased risk of fracture and the patient may be considered for treatment. Re-Screen 2-5 years. NOTE: T-SCORE=SD OF THE YOUNG ADULT MEAN.
== END | disposition home or self-care (01) ==
LOC: RADBDWWP 14:57
PROVIDERS: ATTEND Obstetrics & Gynecology
DX: M81.0 Age-related osteoporosis without current pathological fracture (principal); M85.89 Other specified disorders of bone density and structure, multiple sites; Z78.0 Asymptomatic menopausal state
CPT/HCPCS: 77080